=== PATIENT | female | born 2000 | race Two or more races ===

== ENCOUNTER 2020-03-17 20:10 | Emergency (ER) | payer OTHER ==
[~2020-03-17] VITALS: Ht 154.9 cm; Wt 54.5 kg
[2020-03-17] MEDS ORDERED: HYDROmorphone 2 MG/ML SYRINGE IVP ONE (20:15)
[2020-03-17] MEDS ORDERED: ONDANSETRON HCL 4 MG/2 ML VIAL IVP ONE (20:30)
[2020-03-17] MEDS ORDERED: PERTUSS(ACELL),DIPH,TET VAC/PF 0.5 ML VIAL IM ONE (20:45)
[2020-03-17] MEDS ORDERED: CefTRIAXone 1 GM/DEXTROSE 50 ML IV ONE (20:45)
[2020-03-17 21:17] LABS: BASOPHILS % (AUTO) 0.4 % (0.0-2.0); EOSINOPHILS % (AUTO) 1.4 % (1.0-6.0); HEMATOCRIT 41.1 % (36-46); HEMOGLOBIN 13.6 g/dL (12.0-16.0); LYMPHOCYTES # (AUTO) 3.5 K/uL (1.0-4.8); LYMPHOCYTES % (AUTO) 37.9 % (22.0-44.0); MEAN CORPUSCULAR HEMOGLOBIN 31.2 pg (26.0-34.0); MEAN CORPUSCULAR HGB CONC 33.1 G/dL (31.0-37.0); MEAN CORPUSCULAR VOLUME 94 fL (80-100); MONOCYTES # (AUTO) 0.5 K/uL (0.1-1.0); MONOCYTES % (AUTO) 5.7 % (2.0-9.0); NEUTROPHILS % (AUTO) 54.6 % (40.0-70.0); PLATELET COUNT (AUTO) 240 K/uL (150-450); RED BLOOD CELL COUNT(AUTO) 4.36 MIL/uL (4.00-5.20); RED CELL DISTRIBUTION WIDTH 12.7 % (11.5-14.5)
[2020-03-17 21:47] LABS: ALANINE AMINOTRANSFERASE 12 U/L (12-78); ALKALINE PHOSPHATASE 70 U/L (46-116); ANION GAP 14 mmol/L (8-16); ASPARTATE AMINOTRANSFERASE 19 U/L (15-37); BILIRUBIN,TOTAL 0.3 mg/dL (0.1-1.0); CALCIUM, TOTAL 8.6 mg/dL (8.8-10.5); CARBON DIOXIDE 21 mmol/L (22-29); CHLORIDE 105 mmol/L (98-107); CREATININE 0.85 mg/dL (0.60-1.30); GLOMERULAR FILTR. RATE CALC > 60 mL/min (>60); GLUCOSE,RANDOM 96 mg/dL (70-110); HCG,QUANTITATIVE 1 mIU/mL (0-6); SODIUM SERUM 140 mmol/L (136-145); TOTAL PROTEIN, SERUM 7.6 g/dL (6.4-8.2); UREA NITROGEN, BLOOD 8 mg/dL (7-18)
[2020-03-17 21:50] LABS: POTASSIUM 2.9 mmol/L (3.5-5.1)
[2020-03-17] MEDS ORDERED: POTASSIUM CHLORIDE 20 MEQ ER TABLET PO ONE (22:00)
[2020-03-17 22:13] VITALS: BP 127/77
== END 2020-03-17 22:30 | disposition home or self-care (01) ==
LOC: EMS 20:10
DX: S31.823A Puncture wound without foreign body of left buttock, initial encounter (principal); S81.832A Puncture wound without foreign body, left lower leg, initial encounter; W34.09XA Accidental discharge from other specified firearms, initial encounter; Y93.89 Activity, other specified; Y92.89 Other specified places as the place of occurrence of the external cause; Y99.8 Other external cause status
CPT/HCPCS: 73600; 74018; 80053; 84702; 85025; 90471; 90715; 96365; 96375; 99291; J0696; J1170; J2405; 36415-L1; 36415-TC

== ENCOUNTER 2020-03-19 14:48 | Emergency (ER) | payer OTHER ==
[~2020-03-19] VITALS: Ht 154.9 cm; Wt 54.5 kg
[2020-03-19] MEDS ORDERED: CEPH-581 PO (15:11)
[2020-03-19 16:34] VITALS: BP 111/51
== END 2020-03-19 16:36 | disposition home or self-care (01) ==
LOC: EMS 14:51
DX: S31 Open wound of abdomen, lower back, pelvis and external genitals (principal); X58.XXXD Exposure to other specified factors, subsequent encounter
CPT/HCPCS: 99283; Z7502

== ENCOUNTER 2020-03-22 13:17 | Emergency (ER) | payer OTHER ==
[~2020-03-22] VITALS: Ht 157.5 cm; Wt 54.5 kg
[~2020-03-22 13:17] MED LIST: CEPH-581 PO
[2020-03-22] MEDS ORDERED: ONDA-104 PO (13:24)
[2020-03-22] MEDS ORDERED: MUPIROCIN CALCIUM 2% 22 GM OINTMENT TP ONE (14:15)
[2020-03-22 14:49] VITALS: BP 122/79
== END 2020-03-22 14:56 | disposition home or self-care (01) ==
LOC: EMS 13:17
DX: L08.9 Local infection of the skin and subcutaneous tissue, unspecified (principal); F12.90 Cannabis use, unspecified, uncomplicated

== ENCOUNTER 2020-03-28 13:28 | Emergency (ER) | payer OTHER ==
[~2020-03-28] VITALS: Ht 157.5 cm; Wt 54.5 kg
[~2020-03-28 13:28] MED LIST changes: +ONDA-104 PO
[2020-03-28] MEDS ORDERED: KETOROLAC TROMETHAMINE 10 MG TABLET PO ONE (14:45)
[2020-03-28 15:00] VITALS: BP 114/70
== END 2020-03-28 15:45 | disposition home or self-care (01) ==
LOC: EDUNIT# 13:28 → EMS 13:36
DX: M79.662 Pain in left lower leg (principal)